=== PATIENT | male | born 1980 | race Caucasian/White ===

== ENCOUNTER 2017-02-12 06:03 | Emergency (ER) | payer SELFPAY ==
[~2017-02-12] VITALS: Ht 177.8 cm; Wt 62.5 kg
[~2017-02-12 06:03] MED LIST: IBUP-1050 PO; OXYC1TAB3 PO
[2017-02-12 06:12] VITALS: Ht 177.8 cm; Wt 62.5 kg
[2017-02-12] MEDS ORDERED: CEFDINIR 300 MG CAP PO STA (06:44)
--- NOTE | 2017-02-12 06:59 | EMERGENCY ROOM VISIT NOTE ---
History Report prepared by Guilherme: Genna Melara Under the Supervision of: Dr. Raymon Mina M.D. First contact with patient: 06:35 Chief Complaint: FACIAL PAIN/INJURY Stated Complaint: FACE PAIN,NUMBNESS History of Present Illness The patient is a 36 year old male who presents to the Emergency Room with complaints of constant left ear pain for five days [employer]. He notes that he had discomfort in his left ear and when he went to use a Q-tip to clean his ear, he felt resistance and fluid. He notes it feels like someone is stabbing and "jamming something into my ear." He currently rates his pain a 5/10 in severity. He reports that his left face went numb two days ago. He and his notes it feels like he is slurring his speech. He also notes a rash on his lips and cheeks. He notes the rash looks like a cold sore, though he states he has never had a cold sore in his life. He and his noticed the rash right after he self-medicated with Amoxicillin, OTC ear drops, and ibuprofen. He has a history of lyme carditis. He denies any headache, fever, or extremity weakness. Source of History: patient Onset: five days [employer] Position: ear (left) Symptom Intensity: 5/10 Quality: stabbing (He notes it feels like someone is stabbing and "jamming something into my ear." ) Timing: constant Associated Symptoms: + numbness (left side of face), + rash, No fevers, No headache, No weakness Note: He notes slurred speech. Review of Systems See HPI for pertinent positives & negatives. A total of 10 systems reviewed and were otherwise negative. Past Medical & Surgical Medical Problems: (1) Fever (2) Fever (3) Hydrocele (4) Lyme carditis (5) Myalgia (6) Myalgia Surgical Problems: (1) [place] teeth extracted Family History Cancer Diabetes mellitus FHx: gallbladder disease FHx: lung disease Social History Smoking Status: Current Every Day Smoker Alcohol Use: occasionally Marital Status: in relationship Housing Status: lives with significant other Occupation Status: employed Current/Historical Medications Scheduled Cefdinir (Omnicef), 300 MG PO Q12H Prednisone (Prednisone), 0 PO DAILY Valacyclovir Hcl (Valtrex), 1,000 MG PO TID Scheduled PRN Ibuprofen (Advil), 400-600 MG PO Q6H PRN for Pain Oxycodone Ir (Roxicodone Ir), 1-2 TAB PO Q4H PRN for Severe Pain Allergies Coded Allergies: No Known Allergies (Verified , 05/30/09) Physical Exam Vital Signs Date Time Temp Pulse Resp B/P (MAP) Pulse Ox O2 Delivery O2 Flow Rate FiO2 02/12/17 08:08 36.2 62 18 129/74 100 02/12/17 08:00 62 18 129/74 100 Room Air 02/12/17 06:12 36.2 74 18 149/89 99 Room Air Physical Exam GENERAL: Patient is in no acute distress. HEENT: Crusted over vesicular rash noted in a few areas to left side of face primarily near mouth and lips. No cellulitis. Moist mucus membranes. No throat erythema. Left TM acutely infected, red and dull. No scleral injection. Pt has loss of function of left frontalis muscle. Subtle left facial droop. Difficulty closing left eye. NECK: No stridor, no adenopathy, no meningismus, trachea is midline. LUNGS: Clear to auscultation bilaterally, no wheeze, no rhonchi, breath sounds equal. HEART: Without murmurs gallops or rubs, regular rate and rhythm. ABDOMEN: Soft, nontender, bowel sounds positive, no hernias, no peritonitis. EXTREMITIES: No cyanosis or edema, full range of motion of all the joints without pain or difficulty, no signs for acute trauma. NEUROLOGIC: No focal extremity motor deficit. No slurred speech. No pronator drift. Subtle left facial droop involving frontalis muscle. Difficulty closing left eye. Awake, alert, and oriented x3. SKIN: No rash, no jaundice, no diaphoresis. Medical Decision & Procedures ER Provider Diagnostic Interpretation: Radiology results as stated below per my review and radiologist interpretation: HEAD WITHOUT CONTRAST (CT) CT DOSE: 537.48 mGy.cm HISTORY: Mental status change. Pain. left facial pain TECHNIQUE: Multiaxial CT images of the head were performed without the use of intravenous contrast. A dose lowering technique was utilized adhering to the principles of ALARA. Comparison: None. Findings: The paranasal sinuses and mastoid air cells are clear. The calvarium and skull base are intact. The ventricles and sulci are within normal limits. There is no mass, hematoma, midline shift, or acute infarct. Impression: No acute intracranial abnormality. The above report was generated using voice recognition software. It may contain grammatical, syntax or spelling errors. Electronically signed by: Ajay Calle M.D. 02/12/2017 7:17 AM Dictated Date/Time: 02/12/2017 7:15 AM Medications Administered Medications (Trade) Dose Ordered Sig/Amanda Route Start Time Stop Time Status Last Admin Dose Admin Valacyclovir HCl (Valtrex Tab) 1,000 mg NOW ONCE PO 02/12/17 06:45 02/12/17 06:51 DC 02/12/17 06:55 1,000 MG Prednisone (PredniSONE TAB) 60 mg NOW STAT PO 02/12/17 06:44 02/12/17 06:51 DC 02/12/17 06:54 60 MG Cefdinir (Omnicef Cap) 300 mg ONE STAT PO 02/12/17 06:44 02/12/17 06:51 DC 02/12/17 07:16 300 MG ED Course 0638: The patient was evaluated in room B10. A complete history and physical exam was performed. 0644: Ordered Cefdinir 300 mg PO, Prednisone 60 mg PO, and Valtrex 1,000 mg PO 0704: I spoke with Dr. Gay, neurologist. We discussed the patients case. 0749: I reassessed the patient at this time. He is feeling better and resting comfortably. I discussed the results and treatment plan with the patient. I answered all pertaining questions that he had. He expressed understanding and verbalized agreement. The patient will be discharged home. Medical Decision The patient is a 36 year old male who presents to the ED with complaints of left ear pain. Differential diagnoses considered include stroke, shingles, herpes infection, otitis media, pharyngitis, Mcclure palsy, and intracranial bleeding. The patient presents with left facial numbness and some left ear pain. On exam , he appears to have a partial left bells palsy-the frontalis muscle is involved. He does have some crusted over vesicular lesions to the left side of the face near his mouth. He does have a left otitis media on exam. No focal extremity deficits to suggest CVA. Brain CT shows no acute bleed or mass effect. The patient was not febrile or toxic. No findings suggesting meningitis. I spoke to Dr. Gay of neurology. The patient is being started on Valtrex, prednisone. We will use Omnicef for the left otitis media. The patient is being discharged with outpatient neurologic follow-up. He was encouraged to return for any worsening symptoms. In short, I suspect the patient has a viral infection, possibly shingles, possibly some other herpetic infection-this has led to the bells palsy. Medication Reconcilliation Current Medication List: was personally reviewed by me Blood Pressure Screening Patient's blood pressure: Elevated blood pressure Blood pressure disposition: Elevated BP felt to be situational Consults Time Called: 651 Consulting Physician: Dr. Gay, neurologist Returned Call: [phone] Gay, neurologist. We discussed the patients case. Impression Primary Impression: Grimm's palsy Additional Impression: Left otitis media Scribe Attestation The scribe's documentation has been prepared under my direction and personally reviewed by me in its entirety. I confirm that the note above accurately reflects all work, treatment, procedures, and medical decision making performed by me. Departure Information Dispostion Home / Self-Care Prescriptions Cefdinir (OMNICEF) 300 Mg Cap 300 MG PO Q12H for 10 Days, #20 CAP Prov: Raymon Mina M.D. 02/12/17 Valacyclovir Hcl (VALTREX) 1 Gm Tab 1000 MG PO TID, #21 TAB Prov: Raymon Mina M.D. 02/12/17 Prednisone (Prednisone) 20 Mg Tab 0 PO DAILY, #18 TAB 3 DAILY FOR 3 DAYS, THEN 2 DAILY FOR 3 DAYS, THEN 1 DAILY FOR 3 DAYS. Prov: Raymon Mina M.D. 02/12/17 Referrals No Doctor, Assigned (PCP) Forms HOME CARE DOCUMENTATION FORM, IMPORTANT VISIT INFORMATION Patient Instructions My [facility] [place] Additional Instructions omnicef 2x per day for 10 days valtrex 3x per day for 1 week prednisone daily as directed return if worsening or have fever call and set up neurology appt for next week Problem Qualifiers
--- NOTE | 2017-02-12 07:18 | DIAGNOSTIC IMAGING REPORT ---
HEAD WITHOUT CONTRAST (CT) CT DOSE: 537.48 mGy.cm HISTORY: Mental status change. Pain. left facial pain TECHNIQUE: Multiaxial CT images of the head were performed without the use of intravenous contrast. A dose lowering technique was utilized adhering to the principles of ALARA. Comparison: None. Findings: The paranasal sinuses and mastoid air cells are clear. The calvarium and skull base are intact. The ventricles and sulci are within normal limits. There is no mass, hematoma, midline shift, or acute infarct. Impression: No acute intracranial abnormality. The above report was generated using voice recognition software. It may contain grammatical, syntax or spelling errors. Electronically signed by: Ajay Calle M.D. 02/12/2017 7:17 AM Dictated Date/Time: 02/12/2017 7:15 AM
[2017-02-12] MEDS ORDERED: CEFD300C2 PO (08:01)
[2017-02-12] MEDS ORDERED: VALA1TAB2 PO (08:01)
[2017-02-12] MEDS ORDERED: PRED20TA PO (08:01)
[2017-02-12 08:08] VITALS: BP 129/74; PULSE 62; TEMP 36.2; O2SAT 100
== END 2017-02-12 08:09 | disposition home or self-care (01) ==
LOC: C.EDB 06:04
DX: G51.0 Bell's palsy (principal); H66.92 Otitis media, unspecified, left ear; F17.200 Nicotine dependence, unspecified, uncomplicated; Z79.899 Other long term (current) drug therapy; Z80.9 Family history of malignant neoplasm, unspecified; Z83.3 Family history of diabetes mellitus; Z83.79 Family history of other diseases of the digestive system

== ENCOUNTER → 2017-07-08 | Outpatient (CLI) | payer OTHER ==
[~2017-07-08] MED LIST changes: +PRED20TA PO
[2017-07-08 17:41] LABS: HEMATOCRIT 40.1 % (42-52); HEMOGLOBIN 14.1 g/dL (14.0-18.0); MEAN CELL VOLUME 95.9 fL (80-100); MEAN CORPUSCULAR HEMOGLOBIN 33.7 pg (25-34); MEAN CORPUSCULAR HGB CONC 35.2 g/dl (32-36); PLATELET COUNT 349 K/uL (130-400); RED CELL DISTRIBUTION WIDTH CV 14.2 % (11.5-14.5); WHITE BLOOD COUNT 8.49 K/uL (4.8-10.8)
[2017-07-08 18:09] LABS: ALBUMIN 4.2 gm/dl (3.4-5.0); ALKALINE PHOSPHATASE 48 U/L (45-117); ALT/SGPT 19 U/L (12-78); AST/SGOT 19 U/L (15-37); BLOOD UREA NITROGEN 8 mg/dl (7-18); CARBON DIOXIDE 28 mmol/L (21-32); CHOLESTEROL 177 mg/dl (0-200); CREATININE 0.88 mg/dl (0.60-1.40); GLUCOSE 69 mg/dl (70-99); LDL CHOLESTEROL CALCULATED 66 mg/dl; POTASSIUM 3.7 mmol/L (3.5-5.1); SODIUM 139 mmol/L (136-145); TOTAL PROTEIN 7.7 gm/dl (6.4-8.2)
== END | disposition home or self-care (01) ==
LOC: C.LAB1850 16:53
PROVIDERS: ATTEND Internal Medicine
DX: Z13.220 Encounter for screening for lipoid disorders (principal); Z86.19 Personal history of other infectious and parasitic diseases